=== PATIENT | female | born 1990 | race Caucasian/White ===

== ENCOUNTER 2017-09-06 09:49 | Emergency (ER) | payer SELFPAY ==
[2017-09-06 09:55] VITALS: BP 140/79; PULSE 71; TEMP 98.5; BMI 28.1
[2017-09-06] MEDS ORDERED: IBUPROFEN 400 MG TABLET (FP) PO ONE ×2 (10:27→11:04)
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
== END 2017-09-06 11:33 | disposition home or self-care (01) ==
LOC: JERFT 09:49
DX: S49.82XD Other specified injuries of left shoulder and upper arm, subsequent encounter (principal); Y04.2XXD Assault by strike against or bumped into by another person, subsequent encounter; Y07.9 Unspecified perpetrator of maltreatment and neglect
CPT/HCPCS: 73030-TC-LT; 84703; 99281-25